=== PATIENT | female | born 1965 | race Caucasian/White ===

== ENCOUNTER 2021-07-01 14:08 | Emergency (ER) | payer MEDICARE, SELFPAY ==
[2021-07-01] VITALS (12 sets, daily range): BP systolic 157–190; BP diastolic 81–103; PULSE 69–101; RESP 14–20; TEMP 36.3; O2SAT 74–100; BMI 22.8
[2021-07-01] MEDS: LORazepam 0.5 MG TABLET 1 MG PO (15:01)
[2021-07-01 15:10] LABS: Add Manual Diff / Slide Review NO; Basophils Absolute Auto 0 /uL (0-100); Basophils Percent Auto 0.6 % (0-2); Eosinophils Absolute Auto 100 /uL (0-450); Eosinophils Percent Auto 1.8 % (2-4); Hematocrit 36.4 % (36-46); Hemoglobin 12.1 g/dL (12.0-16.0); Lymphocytes Absolute Auto 1900 /uL (1100-4500); Lymphocytes Percent Auto 35.8 % (25-40); Mean Corpuscular HGB Conc 33.4 % (30-36); Mean Corpuscular Hemoglobin 25.9 PG (26-34); Mean Corpuscular Volume 77.6 fL (80-100); Monocytes Absolute Auto 300 /uL (0-900); Monocytes Percent Auto 5.6 % (3-14); Neutrophils Absolute Auto 3000 /uL (1500-7000); Neutrophils Percent Auto 56.2 % (50-75); Platelet Count 268 X10^3/uL (150-400); Red Blood Cell Count 4.69 X10^6/uL (4.0-5.2); Red Cell Distribution Width 18.7 % (11.6-14.8); White Blood Cell Count 5.3 X10^3/uL (4.5-11.0)
[2021-07-01 15:15] LABS: Alanine Aminotransferase 26 IU/L (<35); Albumin 4.6 g/dL (3.5-5.0); Albumin Globulin Ratio 1.5 (1.0-2.8); Alkaline Phosphatase 65 U/L (38-126); Aspartate Aminotransferase 39 IU/L (14-36); Bilirubin Total 0.6 mg/dL (0.2-1.3); Blood Urea Nitrogen 20 mg/dL (7-17); Calcium 10.2 mg/dL (8.4-10.2); Carbon Dioxide 34 mmol/L (22-32); Chloride 102 mmol/L (98-107); Creatine Kinase 100 U/L (30-135); Estimated Glomerular Filt Rate > 60.0 mL/min (>60); Globulin 3.1 g/dL (1.7-4.1); Glucose 106 mg/dL (70-100); HEMOLYSIS < 15 (0-50); Lipase 314 U/L (23-300); Sodium 139 mmol/L (137-145); Total Protein 7.7 g/dL (6.3-8.2)
--- NOTE | 2021-07-01 15:18 | ED_ITS ---
HPI - Headache <Isidro Manriquez PA-C - Last Filed: 07/01/21 19:07> General Chief Complaint: Headache Time Seen by Provider: 07/01/21 14:26 Mode of arrival: EMS History of Present Illness HPI Narrative: Patient is a 56-year-old female history of hypertension and anxiety presenting to the emergency department today for evaluation elevated blood pressure and headache. Patient states that she has experienced symptoms of increased anxiety, headache, hypertension, and drop pain for the past 3 days. She states that she went to the clinic today for her symptoms and was sent to the emergency department for further evaluation. She states that her blood pressure has been running higher than normal since April, noting that today her blood pressure was 224/125. Patient took her normal dose of 20 mg of lisinopril and took a dose of her 's 10 mg hydrochlorothiazide. Of note, patient states that she discontinued her lorazepam approximately 7 days ago. No fever, chills, chest pain, generalized weakness, change in speech, changes in vision, confusion, nausea, vomiting, diarrhea, abdominal pain, dysuria, hematuria, or any other concerning symptoms reported. No further concerns were voiced at this time. Related Data Home Medications Medication Instructions Recorded Confirmed fluoxetine 40 mg capsule (Prozac) 40 mg PO QDAY #0 05/18/11 [DEXEDRINE] 20 mg PO TID #0 05/29/12 Allergies Allergy/AdvReac Type Severity Reaction Status Date / Time tree nut Allergy Severe SWELLING Unverified 09/19/17 11:46 AND SORES IN MOUTH FROM [place] morphine Allergy Mild ITCHING Unverified 09/19/17 11:46 cephalexin Allergy Unknown THROAT Unverified 09/19/17 11:46 SWELLING NSAIDS (Non-Steroidal AdvReac Intermediate Verified 07/01/21 14:21 Anti-Inflamma Review of Systems <Isidro Manriquez PA-C - Last Filed: 07/01/21 19:07> Constitutional Constitutional: Denies chills, Denies fatigue, Denies fever(s), Denies frequent falls, Reports headache(s), Denies lethargy and Denies weakness Eyes Eyes: Denies loss of vision ENT Ears, Nose, Mouth, and Throat: Denies dizziness, Reports headache(s), Denies neck pain and Reports other (Jaw pain) Cardiovascular Cardiovascular: Denies chest pain, Denies irregular heart rhythm, Denies lightheadedness, Denies palpitations, Denies dyspnea, Denies dyspnea on exertion, Denies orthopnea and Reports other (Hypertension) Respiratory Respiratory: Denies cough, Denies dyspnea, Denies dyspnea on exertion and Denies wheezing Gastrointestinal Gastrointestinal: Denies abdominal pain, Denies change in bowel habits, Denies diarrhea, Denies nausea and Denies vomiting Genitourinary Genitourinary: Denies hematuria, Denies flank pain, Denies urinary incontinence and Denies urinary urgency Musculoskeletal Musculoskeletal: Denies back pain, Denies muscle weakness, Denies neck pain, Denies numbness and Denies tingling Integumentary/Breasts Skin/Breast: Denies pruritus, Denies erythema, Denies rash and Denies wounds Neurologic Neurologic: Denies behavioral changes, Denies confusion, Denies dizziness, Denies frequent falls, Reports headache(s), Denies loss of vision, Denies numbness, Denies tingling and Denies weakness Psychiatric Psychiatric: Reports anxiety, Denies behavioral changes and Denies confusion Endocrine Endocrine: Denies fatigue and Denies palpitations Allergic/Immunologic Allergic/Immunologic: Denies wheezing Patient History <Isidro Manriquez PA-C - Last Filed: 07/01/21 19:07> Social History Smoking Status: Never smoker Smoking Status: Never smoker alcohol intake frequency: 0-2 drinks per day Alcohol type: beer Substance Use Type: does not use Exam <OLAF Raya Last Filed: 07/01/21 19:07> Narrative Exam Narrative: GENERAL: 56 year old patient appears stated age. Well-developed patient, in mild distress. Pressured speech, patient appears anxious. HEAD: Atraumatic. Normocephalic. EYES: Pupils equal round and reactive. Extraocular motions intact. No scleral icterus. No injection or drainage. ENT: Nose without bleeding, purulent drainage. Throat without erythema, tonsillar hypertrophy or exudate. Airway patent. NECK: Trachea midline. Non tender CARDIOVASCULAR: Tachycardia but regular rhythm without murmurs, gallops, or rubs. RESPIRATORY: Clear to auscultation. Breath sounds equal bilaterally. No wheezes, rales, or rhonchi. GASTROINTESTINAL: Abdomen soft, non-tender, nondistended. EXTREMITIES: No edema or joint tenderness. BACK: Nontender without deformity or crepitance. No flank tenderness. NEURO: AOx3. SKIN: No rash or erythema of visible areas Initial Vital Signs Initial Vital Signs: Vital Signs Temperature 97.3 F L 07/01/21 14:10 Pulse Rate 86 07/01/21 14:10 Respiratory Rate 20 07/01/21 14:10 Blood Pressure 172/81 H 07/01/21 14:10 Pulse Oximetry 100 07/01/21 14:10 <Herb Stephenson DO - Last Filed: 07/02/21 07:27> Initial Vital Signs Initial Vital Signs: Vital Signs Temperature 97.3 F L 07/01/21 14:10 Pulse Rate 86 07/01/21 14:10 Respiratory Rate 20 07/01/21 14:10 Blood Pressure 172/81 H 07/01/21 14:10 Pulse Oximetry 100 07/01/21 14:10 Course <Isidro Manriquez PA-C - Last Filed: 07/01/21 19:07> Course Course Narrative: CBC, CMP, lipase urine dip, troponin, EKG obtained. Patient administered 5 mg IV labetalol and 1 mg of PO Ativan. Patient states she is feeling significantly better after Ativan and with her lower blood pressure is feeling much more comfortable. Orders Ordered: Discontinued Medications Labetalol HCl (Labetalol 20 Mg/4 Ml Syringe) 5 mg IV NOW ONE Stop: 07/01/21 15:17 Last Admin: 07/01/21 15:22 Dose: 5 mg Documented by: HUBER Lorazepam (Lorazepam 0.5 Mg Tablet) 1 mg PO NOW ONE Stop: 07/01/21 14:57 Last Admin: 07/01/21 15:01 Dose: 1 mg Documented by: ÁNGEL Vital Signs Vital signs: Vital Signs - 8 hr 07/01/21 14:10 07/01/21 14:29 07/01/21 14:30 Temperature 97.3 F L Pulse Rate 86 82 84 Respiratory Rate 20 18 14 Blood Pressure 172/81 H 185/103 H Pulse Oximetry 100 100 100 07/01/21 14:31 07/01/21 15:00 07/01/21 15:22 Temperature Pulse Rate 81 86 101 H Respiratory Rate 19 17 Blood Pressure 183/100 H 190/101 H 190/101 H Pulse Oximetry 100 100 07/01/21 15:30 07/01/21 15:45 07/01/21 16:00 Temperature Pulse Rate 72 77 73 Respiratory Rate 16 20 20 Blood Pressure 173/92 H 157/88 H Pulse Oximetry 99 100 74 L 07/01/21 16:01 07/01/21 16:15 07/01/21 16:30 Temperature Pulse Rate 76 69 80 Respiratory Rate 18 18 18 Blood Pressure 178/88 H 171/95 H 159/87 H Pulse Oximetry 94 100 99 <Herb Stephenson DO - Last Filed: 07/02/21 07:27> Orders Ordered: Discontinued Medications Labetalol HCl (Labetalol 20 Mg/4 Ml Syringe) 5 mg IV NOW ONE Stop: 07/01/21 15:17 Last Admin: 07/01/21 15:22 Dose: 5 mg Documented by: HUBER Lorazepam (Lorazepam 0.5 Mg Tablet) 1 mg PO NOW ONE Stop: 07/01/21 14:57 Last Admin: 07/01/21 15:01 Dose: 1 mg Documented by: ÁNGEL Vital Signs Vital signs: Vital Signs - 8 hr 07/01/21 14:10 07/01/21 14:29 07/01/21 14:30 Temperature 97.3 F L Pulse Rate 86 82 84 Respiratory Rate 20 18 14 Blood Pressure 172/81 H 185/103 H Pulse Oximetry 100 100 100 07/01/21 14:31 07/01/21 15:00 07/01/21 15:22 Temperature Pulse Rate 81 86 101 H Respiratory Rate 19 17 Blood Pressure 183/100 H 190/101 H 190/101 H Pulse Oximetry 100 100 07/01/21 15:30 07/01/21 15:45 07/01/21 16:00 Temperature Pulse Rate 72 77 73 Respiratory Rate 16 20 20 Blood Pressure 173/92 H 157/88 H Pulse Oximetry 99 100 74 L 07/01/21 16:01 07/01/21 16:15 07/01/21 16:30 Temperature Pulse Rate 76 69 80 Respiratory Rate 18 18 18 Blood Pressure 178/88 H 171/95 H 159/87 H Pulse Oximetry 94 100 99 MDM - Headache <Isidro Manriquez PA-C - Last Filed: 07/01/21 19:07> Lab Data Result diagrams: 07/01/21 14:30 07/01/21 14:30 Labs: Lab Results 07/01/21 07/01/21 Range/Units 14:30 14:30 WBC 5.3 (4.5-11.0) X10^3/uL RBC 4.69 (4.0-5.2) X10^6/uL Hgb 12.1 (12.0-16.0) g/dL Hct 36.4 (36-46) % MCV 77.6 L (80-100) fL MCH 25.9 L (26-34) PG MCHC 33.4 (30-36) % RDW 18.7 H (11.6-14.8) % Plt Count 268 (150-400) X10^3/uL Neut % (Auto) 56.2 (50-75) % Lymph % (Auto) 35.8 (25-40) % Pender % (Auto) 5.6 (3-14) % Eos % (Auto) 1.8 L (2-4) % Baso % (Auto) 0.6 (0-2) % Neut # (Auto) 3000 (9487-2541) /uL Lymph # (Auto) 1900 (2914-6169) /uL Pender # (Auto) 300 (0-900) /uL Eos # (Auto) 100 (0-450) /uL Baso # (Auto) 0 (0-100) /uL Sodium 139 (137-145) mmol/L Potassium 4.0 (3.4-5.1) mmol/L Chloride 102 (98-107) mmol/L Carbon Dioxide 34 H (22-32) mmol/L BUN 20 H (7-17) mg/dL Creatinine 0.91 (0.52-1.04) mg/dL Estimated GFR > 60.0 (>60) mL/min BUN/Creatinine Ratio 22.0 (6-22) Glucose 106 H (70-100) mg/dL Calcium 10.2 (8.4-10.2) mg/dL Total Bilirubin 0.6 (0.2-1.3) mg/dL AST 39 H (14-36) IU/L ALT 26 (<35) IU/L Alkaline Phosphatase 65 (38-126) U/L Total Creatine Kinase 100 (30-135) U/L CK-MB (CK-2) TNP CK-MB (CK-2) Rel Index TNP Troponin I < 0.012 (0.01-0.034) ng/mL Total Protein 7.7 (6.3-8.2) g/dL Albumin 4.6 (3.5-5.0) g/dL Globulin 3.1 (1.7-4.1) g/dL Albumin/Globulin Ratio 1.5 (1.0-2.8) Lipase 314 H (23-300) U/L Urine Dip Bedside Urine Glucose Negative Bedside Urine Bilirubin - Negative Bedside Urine Ketone - Negative Urine Specific [place] 1.015 Bedside Urine Occult Blood - Negative Bedside Urine pH 6 Bedside Urine Protein - Negative Bedside Urine Urobilinogen - Negative Bedside Urine Nitrite - Negative Bedside Urine Leukocytes - Negative Esterase ECG Data Interpretation: Ventricular rate of 72 beats per minute, GA interval 150 ms, normal sinus rhythm. MDM Narrative Medical decision making narrative: To consider essential hypertension versus hypertensive urgency versus hypertensive emergency versus cerebrovascular accident versus transient ischemic attack versus migraine versus tension headache versus cluster headache. Overall physical examination, history, and lab work obtained in the emergency department today were reassuring. Discussed with patient the importance of following up with the primary care provider to discuss further options when it comes to anxiety and blood pressure management. Patient expresses understanding and agrees to plan. I urged the patient to return to the emergency department and she experience worsening symptoms. Strict return precautions were discussed with the patient prior to discharge. At this time patient is ready and stable for discharge. <Herb Stephenson, - Last Filed: 07/02/21 07:27> Lab Data Labs: Lab Results 07/01/21 07/01/21 Range/Units 14:30 14:30 WBC 5.3 (4.5-11.0) X10^3/uL RBC 4.69 (4.0-5.2) X10^6/uL Hgb 12.1 (12.0-16.0) g/dL Hct 36.4 (36-46) % MCV 77.6 L (80-100) fL MCH 25.9 L (26-34) PG MCHC 33.4 (30-36) % RDW 18.7 H (11.6-14.8) % Plt Count 268 (150-400) X10^3/uL Neut % (Auto) 56.2 (50-75) % Lymph % (Auto) 35.8 (25-40) % Pender % (Auto) 5.6 (3-14) % Eos % (Auto) 1.8 L (2-4) % Baso % (Auto) 0.6 (0-2) % Neut # (Auto) 3000 (9402-3985) /uL Lymph # (Auto) 1900 (2796-5960) /uL Pender # (Auto) 300 (0-900) /uL Eos # (Auto) 100 (0-450) /uL Baso # (Auto) 0 (0-100) /uL Sodium 139 (137-145) mmol/L Potassium 4.0 (3.4-5.1) mmol/L Chloride 102 (98-107) mmol/L Carbon Dioxide 34 H (22-32) mmol/L BUN 20 H (7-17) mg/dL Creatinine 0.91 (0.52-1.04) mg/dL Estimated GFR > 60.0 (>60) mL/min BUN/Creatinine Ratio 22.0 (6-22) Glucose 106 H (70-100) mg/dL Calcium 10.2 (8.4-10.2) mg/dL Total Bilirubin 0.6 (0.2-1.3) mg/dL AST 39 H (14-36) IU/L ALT 26 (<35) IU/L Alkaline Phosphatase 65 (38-126) U/L Total Creatine Kinase 100 (30-135) U/L CK-MB (CK-2) TNP CK-MB (CK-2) Rel Index TNP Troponin I < 0.012 (0.01-0.034) ng/mL Total Protein 7.7 (6.3-8.2) g/dL Albumin 4.6 (3.5-5.0) g/dL Globulin 3.1 (1.7-4.1) g/dL Albumin/Globulin Ratio 1.5 (1.0-2.8) Lipase 314 H (23-300) U/L Urine Dip Bedside Urine Glucose Negative Bedside Urine Bilirubin - Negative Bedside Urine Ketone - Negative Urine Specific [place] 1.015 Bedside Urine Occult Blood - Negative Bedside Urine pH 6 Bedside Urine Protein - Negative Bedside Urine Urobilinogen - Negative Bedside Urine Nitrite - Negative Bedside Urine Leukocytes - Negative Esterase Discharge Plan Departure Patient Disposition: Home Clinical Impression: Hypertension, Headache Instructions: DI for High Blood Pressure Activity Restrictions/Additional Instructions: *You have been diagnosed with hypertension, headache *What to do: *Please continue to take your regular medications as directed. [ ] New medication prescriptions sent to your pharmacy: [ ] [ ] New medication written as a paper prescription [X] No new medications given *Please follow up with your primary care provider in 2-3 days, call for an appointment. Let them know you were seen in the Emergency Department and that we ask that you be seen in follow up. We will electronically transmit a record of today's note if your PCP is in our system. *Please follow-up with the primary care providers to discuss additional options to manage your anxiety and high blood pressure. *If you do not have a primary care provider please contact the [facility] Resource line at [phone]. They will ask some questions about your medical history and help get you set up with a doctor in the community. *Return to Emergency Department if you should have any new, worsening or concerning symptoms, such as fever greater than 101 F, shaking chills, worsening pain, persistent vomiting or other bothersome symptoms. Prescriptions: No Action fluoxetine [Prozac] 40 MG capsule 40 mg PO QDAY Qty: 0 0RF [DEXEDRINE] 20 mg PO TID Qty: 0 0RF Referrals: Velma Kim ARNP [Primary Care Provider] - <Herb Stephenson DO - Last Filed: 07/02/21 07:27> Cosign ED Attending Coskelyature Attestation: Dr Stephesnon Co-Sign Statement: I was available for consultation during this patient's emergency department visit. This chart is signed by myself for administrative purposes only. I did not have direct contact with this patient during this visit. They were seen independently by the APC.
[2021-07-01] MEDS: LABETALOL 20 MG/4 ML SYRINGE 5 MG IV (15:22)
[2021-07-01 15:27] LABS: Troponin I < 0.012 ng/mL (0.01-0.034)
== END 2021-07-01 16:56 | disposition home or self-care (01) ==
PROVIDERS: Emergency Provider Physician Assistant; Family Provider Nurse Practitioner; PCP Nurse Practitioner
DX: I10 Essential (primary) hypertension (principal); R51.9 Headache, unspecified
CPT/HCPCS: 36415; 80053; 81003; 82550; 83690; 84484; 85025; 93005; 93010; 96374; 99284